=== PATIENT | female | born 1980 | race American Indian/Alaskan Native ===

== ENCOUNTER 2017-06-20 21:10 | Emergency (ER) | payer MEDICARE ==
[2017-06-20 22:04] LABS: Basophils % (Auto) 1.1 % (0.0-1.8); Eosinophils % (Auto) 2.1 % (0.0-4.3); Hematocrit 32.5 % (30.3-42.9); Hemoglobin 10.5 gm/dl (10.1-14.3); Mean Corpuscular HGB Conc 32 % (30-34); Mean Corpuscular Hemoglobin 27 pg (28-32); Mean Corpuscular Volume 85 fl (79-97); Platelet Count 237 K/mm3 (140-440); Red Blood Count 3.84 M/mm3 (3.65-5.03); Red Cell Distribution Width 19.8 % (13.2-15.2); White Blood Count 5.5 K/mm3 (4.5-11.0)
[2017-06-20 22:24] LABS: Alanine Aminotransferase 12 units/L (7-56); Albumin 3.8 g/dL (3.9-5); Albumin/Globulin Ratio 1.1 %; Alkaline Phosphatase 93 units/L (35-129); Anion Gap 17 mmol/L; BUN/Creatinine Ratio 32; Blood Urea Nitrogen 16 mg/dL (7-17); Calcium 8.9 mg/dL (8.4-10.2); Carbon Dioxide 22 mmol/L (22-30); Chloride 103.6 mmol/L (98-107); Glucose 110 mg/dL (65-100); Lipase 33 units/L (13-60); Potassium 3.3 mmol/L (3.6-5.0); Sodium 139 mmol/L (137-145); Total Protein 7.2 g/dL (6.3-8.2)
[2017-06-21 11:37] VITALS: BP 114/83
== END 2017-06-21 10:45 | disposition left against medical advice (07) ==
LOC: ED 21:10
DX: R11.0 Nausea (principal); Z53.21 Procedure and treatment not carried out due to patient leaving prior to being seen by health care provider
CPT/HCPCS: 36415; 80053; 83690; 84703; 85025

== ENCOUNTER 2021-01-29 05:20 | Emergency (ER) | payer MEDICARE ==
[2021-01-29] MEDS ORDERED: LORazepam 1 MG TAB PO ONE (06:45)
[2021-01-29] MEDS ORDERED: DIVALPROEX DR 500 MG TAB PO ONE (06:46)
--- NOTE | 2021-01-29 06:57 | Emergency Department Report ---
ED General Adult HPI - General Chief complaint: Seizure Stated complaint: SZ Time Seen by Provider: 01/29/21 06:16 Source: EMS Mode of arrival: Stretcher Limitations: No Limitations - History of Present Illness Initial comments: This is a 40-year-old female who is not providing a lot of historical information. She states that she is unclear as to why she is here. She can tell me her name and the year as well as her address. Apparently she was transp orted via EMS after a witnessed "seizure lasted for 30 seconds". The patient does have a history of seizure disorder. She can tell me that she is out of her clonazepam and Depakote. She states that she usually gets her medications through the [facility]. Review of her previous EMR indicates that in 2014 she was seen after seizure and was looking for chronic pain management: I splint the patient that we do not treat lupus flareups with IV morphine, I also presented the patient had a normal sedimentation rate, which is not typical and lupus. I recommended she follow up back at [facility] for reevaluation of her diagnosis. I also explained to her the dangers of narcotic dependence. - Differential Diagnosis Lupus, fibromyalgia, seizure Critical care attestation.: If time is entered above; I have spent that time in minutes in the direct care of this critically ill patient, excluding procedure time. Patient reports no history of trauma. She is not suggesting that she is having a lupus flare. She is not complaining of any pain at the time of my encounter. According to the record she has been previously prescribed Keppra. As above she is stating she is on clonazepam and Depakote. -: This morning Associated Symptoms: denies other symptoms - Related Data Home Medications Medication Instructions Recorded Confirmed Last Taken levETIRAcetam [Keppra] 1,000 mg PO BID 09/26/14 09/26/14 09/26/14 Previous Rx's Medication Instructions Recorded Last Taken Type Tramadol HCl [traMADol] 50 mg PO TID PRN #10 tablet 09/26/14 Unknown Rx Divalproex ER [DepaKOTE ER] 500 mg PO BID #60 tablet 01/29/21 Unknown Rx Ferrous Gluconate [Ferrous 324 mg PO TID #20 tablet 01/29/21 Unknown Rx Gluconate 324 MG] clonazePAM [Klonopin] 1 mg PO QDAY #7 tablet 01/29/21 Unknown Rx Allergies Allergy/AdvReac Type Severity Reaction Status Date / Time aspirin Allergy Swelling Verified 01/29/21 06:38 levetiracetam [From Keppra] Allergy Swelling Verified 01/29/21 06:38 ED Review of Systems ROS: Stated complaint: SZ Other details as noted in HPI Constitutional: denies: chills, fever Eyes: denies: eye pain, vision change ENT: denies: ear pain, throat pain Respiratory: denies: cough, shortness of breath Cardiovascular: denies: chest pain, palpitations Endocrine: no symptoms reported Gastrointestinal: denies: abdominal pain, nausea, diarrhea Genitourinary: denies: urgency, dysuria Musculoskeletal: denies: back pain Skin: denies: rash, lesions Neurological: other. denies: headache, weakness, paresthesias Psychiatric: denies: anxiety, depression Hematological/Lymphatic: denies: easy bleeding, easy bruising ED Past Medical Hx - Past Medical History Previous Medical History?: Yes Hx Seizures: Yes Hx Asthma: Yes Additional medical history: lupus - Surgical History Past Surgical History?: Yes Additional Surgical History: hernia repair - Social History Smoking Status: Never Smoker Substance Use Type: None - Medications Home Medications: Home Medications Medication Instructions Recorded Confirmed Last Taken Type Tramadol HCl [traMADol] 50 mg PO TID PRN #10 tablet 09/26/14 Unknown Rx levETIRAcetam [Keppra] 1,000 mg PO BID 09/26/14 09/26/14 09/26/14 History Divalproex ER [DepaKOTE ER] 500 mg PO BID #60 tablet 01/29/21 Unknown Rx Ferrous Gluconate [Ferrous 324 mg PO TID #20 tablet 01/29/21 Unknown Rx Gluconate 324 MG] clonazePAM [Klonopin] 1 mg PO QDAY #7 tablet 01/29/21 Unknown Rx ED Physical Exam - General Limitations: No Limitations General appearance: alert, in no apparent distress - Head Head exam: Present: atraumatic, normocephalic - Eye Eye exam: Present: normal appearance. Absent: scleral icterus - ENT ENT exam: Present: mucous membranes moist, other (No oral trauma but noted to have tongue fasciculations) - Neck Neck exam: Present: normal inspection - Respiratory Respiratory exam: Present: normal lung sounds bilaterally. Absent: respiratory distress - Cardiovascular Cardiovascular Exam: Present: regular rate, normal rhythm. Absent: systolic murmur, diastolic murmur, rubs, gallop - GI/Abdominal GI/Abdominal exam: Present: soft, normal bowel sounds. Absent: distended, tenderness, guarding, rebound - Extremities Exam Extremities exam: Present: normal inspection. Absent: pedal edema, joint swelling, calf tenderness - Back Exam Back exam: Present: normal inspection. Absent: CVA tenderness (R), CVA tenderness (L), muscle spasm, paraspinal tenderness, vertebral tenderness - Neurological Exam Neurological exam: Present: alert, oriented X3, CN II-XII intact. Absent: motor sensory deficit - Psychiatric Psychiatric exam: Present: normal affect, normal mood - Skin Skin exam: Present: warm, dry, intact, normal color. Absent: rash ED Course Vital Signs 01/29/21 01/29/21 01/29/21 05:31 05:45 06:15 Temperature 98.5 F Pulse Rate 84 94 H 100 H Respiratory 15 24 Rate Blood Pressure 111/54 105/48 Blood Pressure 108/58 [Left] O2 Sat by Pulse 100 99 100 Oximetry 01/29/21 01/29/21 01/29/21 06:31 06:45 07:01 Temperature Pulse Rate 105 H Respiratory 28 H Rate Blood Pressure 105/48 117/75 105/48 Blood Pressure [Left] O2 Sat by Pulse 100 100 100 Oximetry 01/29/21 01/29/21 07:15 07:30 Temperature Pulse Rate Respiratory Rate Blood Pressure 105/48 115/66 Blood Pressure [Left] O2 Sat by Pulse 99 100 Oximetry - Reevaluation(s) Reevaluation #1: Patient is suspected of having clonazepam withdrawal considering her tongue fasciculations. However, she has a pre-existing seizure disorder and noncomplia nce. To be screened for any concommitment metabolic issue. This appears to be clinically unlikely and probably she will be appropriate for discharge. 01/29/21 06:58 ED Medical Decision Making - Lab Data Result diagrams: 01/29/21 06:55 01/29/21 06:55 Laboratory Results - last 24 hr 01/29/21 01/29/21 01/29/21 06:55 06:55 06:59 WBC 5.9 RBC 3.55 L Hgb 8.9 L Hct 28.5 L MCV 80 MCH 25 L MCHC 31 RDW 19.2 H Plt Count 242 Lymph % (Auto) 23.3 [place] % (Auto) 7.7 H Eos % (Auto) 0.4 Baso % (Auto) 0.7 Lymph # (Auto) 1.4 [place] # (Auto) 0.5 Eos # (Auto) 0.0 Baso # (Auto) 0.0 Seg Neutrophils % 67.9 Seg Neutrophils # 4.0 Sodium 138 Potassium 3.9 Chloride 106.0 Carbon Dioxide 22 Anion Gap 14 BUN 13 Creatinine 0.4 L Estimated GFR > 60 BUN/Creatinine Ratio 33 Glucose 138 H Calcium 8.6 Urine Color Yellow Urine Turbidity Clear Urine pH 7.0 Ur Specific [place] 1.011 Urine Protein <15 mg/dl Urine Glucose (UA) Neg Urine Ketones Neg Urine Blood Lg Urine Nitrite Neg Urine Bilirubin Neg Urine Urobilinogen 2.0 Ur Leukocyte Esterase Neg Urine WBC (Auto) 5.0 Urine RBC (Auto) 80.0 U Epithel Cells (Auto) < 1.0 Urine HCG, Qual Negative Urine Opiates Screen Urine Methadone Screen Ur Barbiturates Screen Ur Phencyclidine Scrn Ur Amphetamines Screen U Benzodiazepines Scrn Urine Cocaine Screen U Marijuana (THC) Screen Drugs of Abuse Note 01/29/21 06:59 WBC RBC Hgb Hct MCV MCH MCHC RDW Plt Count Lymph % (Auto) [place] % (Auto) Eos % (Auto) Baso % (Auto) Lymph # (Auto) [place] # (Auto) Eos # (Auto) Baso # (Auto) Seg Neutrophils % Seg Neutrophils # Sodium Potassium Chloride Carbon Dioxide Anion Gap BUN Creatinine Estimated GFR BUN/Creatinine Ratio Glucose Calcium Urine Color Urine Turbidity Urine pH Ur Specific [place] Urine Protein Urine Glucose (UA) Urine Ketones Urine Blood Urine Nitrite Urine Bilirubin Urine Urobilinogen Ur Leukocyte Esterase Urine WBC (Auto) Urine RBC (Auto) U Epithel Cells (Auto) Urine HCG, Qual Urine Opiates Screen Negative Urine Methadone Screen Negative Ur Barbiturates Screen Negative Ur Phencyclidine Scrn Negative Ur Amphetamines Screen Negative U Benzodiazepines Scrn Negative Urine Cocaine Screen Negative U Marijuana (THC) Screen Negative Drugs of Abuse Note Disclamer Critical care attestation.: If time is entered above; I have spent that time in minutes in the direct care of this critically ill patient, excluding procedure time. ED Disposition Clinical Impression: Seizure, Seizure disorder, Hypochromic anemia Disposition: DC-01 TO HOME OR SELFCARE Is pt being admited?: No Does the pt Need Aspirin: No Condition: Stable Instructions: Seizure, Adult, [id number], Seizure, Adult, Preventing Iron Deficiency Anemia, Adult Additional Instructions: It is essential that you get follow-up care for your seizures. I can give you a short course of clonazepam but that must be prescribed by a primary care physician. I can also continue your Depakote. I do recommend iron replacement and follow-up on your anemia. Return to the emergency department any acute change or problem. Prescriptions: Divalproex ER [DepaKOTE ER] 500 mg PO BID #60 tablet Ferrous Gluconate [Ferrous Gluconate 324 MG] 324 mg PO TID #20 tablet clonazePAM [Klonopin] 1 mg PO QDAY #7 tablet Referrals: PRIMARY CARE, [Primary Care Provider] - 3-5 Days [facility] [Provider Group] - 3-5 Days Time of Disposition: 11:44
[2021-01-29 07:16] LABS: Basophils % (Auto) 0.7 % (0.0-1.8); Eosinophils % (Auto) 0.4 % (0.0-4.3); Hematocrit 28.5 % (30.3-42.9); Hemoglobin 8.9 gm/dl (10.1-14.3); Lymphocytes # (Auto) 1.4 K/mm3 (1.2-5.4); Lymphocytes % (Auto) 23.3 % (13.4-35.0); Mean Corpuscular HGB Conc 31 % (30-34); Mean Corpuscular Volume 80 fl (79-97); Monocytes # (Auto) 0.5 K/mm3 (0.0-0.8); Monocytes % (Auto) 7.7 % (0.0-7.3); Platelet Count 242 K/mm3 (140-440); Red Blood Count 3.55 M/mm3 (3.65-5.03); Red Cell Distribution Width 19.2 % (13.2-15.2)
[2021-01-29 07:20] LABS: Amphetamine Screen,Urine Negative; Benzodiazepines Screen,Urine Negative; Cannabinoid Screen,Urine Negative; Cocaine Screen,Urine Negative; Methadone Screen,Urine Negative; Opiate Screen,Urine Negative
[2021-01-29 07:25] LABS: Bilirubin,Urine NEG (Negative); Blood,Urine LG (Negative); Color,Urine Yellow (Yellow); Protein,Urine <15 mg/dL mg/dL (Negative)
[2021-01-29 07:30] LABS: Blood Urea Nitrogen 13 mg/dL (7-17); Calcium 8.6 mg/dL (8.4-10.2); Hemolysis Index 37
[2021-01-29 07:31] LABS: BUN/Creatinine Ratio 33
[2021-01-29 07:41] LABS: HCG Qualitative,Urine Negative (Negative)
[2021-01-29 13:10] VITALS: BP 99/54
== END 2021-01-29 13:10 | disposition home or self-care (01) ==
LOC: ED 05:20
DX: R56.9 Unspecified convulsions (principal); D50.9 Iron deficiency anemia, unspecified; Z98.890 Other specified postprocedural states; Z79.899 Other long term (current) drug therapy; Z88.8 Allergy status to other drugs, medicaments and biological substances
CPT/HCPCS: 36415; 80048; 80307; 81001; 81025; 85025

== ENCOUNTER 2022-05-30 01:52 | Emergency (ER) | payer MEDICARE ==
[2022-05-30] MEDS ORDERED: SODIUM CHLORIDE 0.9% 1000 ML 1,000 ML IV ONE ×2 (03:33→03:56)
[2022-05-30 03:57] LABS: Hematocrit 32.4 % (30.3-42.9); Hemoglobin 10.1 gm/dl (10.1-14.3); Mean Corpuscular HGB Conc 31 % (30-34); Mean Corpuscular Volume 83 fl (79-97); Platelet Count 252 K/mm3 (140-440); Red Blood Count 3.92 M/mm3 (3.65-5.03); Red Cell Distribution Width 19.9 % (13.2-15.2)
--- NOTE | 2022-05-30 04:14 | XRay Report ---
CHEST 1 VIEW INDICATION / CLINICAL INFORMATION: Seizure. COMPARISON: None available. FINDINGS: SUPPORT DEVICES: None. HEART / MEDIASTINUM: No significant abnormality. LUNGS / PLEURA: Pulmonary vascular congestion. No focal area of consolidation. No pleural effusion. N o pneumothorax. ADDITIONAL FINDINGS: No significant additional findings. IMPRESSION: 1. Pulmonary vascular congestion. Signer Name: Kym Bhakta MD Signed: 05/30/2022 4:10 AM Workstation Name: [id number]
[2022-05-30 04:20] LABS: Alanine Aminotransferase 15 units/L (7-56); Albumin 4.3 g/dL (3.9-5); Blood Urea Nitrogen 11 mg/dL (7-17); Calcium 9.4 mg/dL (8.4-10.2); Hemolysis Index 12
[2022-05-30 04:23] LABS: BUN/Creatinine Ratio 22
[2022-05-30 04:53] VITALS: BP 118/69
--- NOTE | 2022-05-30 05:01 | Cat Scan Report ---
CT head/brain wo con INDICATION / CLINICAL INFORMATION: Seizure. TECHNIQUE: Axial CT imaging of the brain was obtained without contrast. Coronal and sagittal reformatted imaging obtained and reviewed. All CT scans at this location are performed using CT dose reduction for ALAR A by means of automated exposure control. COMPARISON: None available. FINDINGS: No intracranial hemorrhage, mass, or midline shift is noted. No extra-axial fluid collection or sugge stion of acute territorial infarction. Ventricular system and basilar cisterns are unremarkable. Visualized paranasal sinuses are well aerated and clear. No calvarial fracture noted. IMPRESSION: 1. No acute intracranial abnormality. Signer Name: Kym Bhakta MD Signed: 05/30/2022 4:57 AM Workstation Name: [id number]
--- NOTE | 2022-05-30 05:13 | Emergency Department Report ---
ED General Adult HPI - General Chief complaint: Seizure Stated complaint: SEIZURE PUI?: No Time Seen by Provider: 05/30/22 03:27 Source: family, EMS Mode of arrival: Stretcher Limitations: No Limitations - History of Present Illness Initial comments: THIS IS A 42 YEAR OLD FEMALE BROUGHT IN BY EMS WITH CONCERN OF SEIZURE. PER SI GNIFICANT OTHER WHO DOESN'T KNOW WHAT MEDICATION SHE IS TAKING FOR HER SEIZURE; PATIENT WAS AT BAR AND HAD ALCOHOL INTAKE AND HAD SEIZURE AROUND MIDNIGHT. - Related Data Home Medications Medication Instructions Recorded Confirmed Last Taken levETIRAcetam [Keppra] 1,000 mg PO BID 09/26/14 09/26/14 09/26/14 Previous Rx's Medication Instructions Recorded Last Taken Type Tramadol HCl [traMADol] 50 mg PO TID PRN #10 tablet 09/26/14 Unknown Rx Divalproex ER [DepaKOTE ER] 500 mg PO BID #60 tablet 01/29/21 Unknown Rx Ferrous Gluconate [Ferrous 324 mg PO TID #20 tablet 01/29/21 Unknown Rx Gluconate 324 MG] clonazePAM [Klonopin] 1 mg PO QDAY #7 tablet 01/29/21 Unknown Rx Allergies Allergy/AdvReac Type Severity Reaction Status Date / Time aspirin Allergy Swelling Verified 01/29/21 06:38 levetiracetam [From Keppra] Allergy Swelling Verified 01/29/21 06:38 ED Review of Systems ROS: Stated complaint: SEIZURE Other details as noted in HPI ED Past Medical Hx - Past Medical History Previous Medical History?: Yes Hx Seizures: Yes Hx Asthma: Yes Additional medical history: lupus - Surgical History Past Surgical History?: Yes Additional Surgical History: hernia repair - Social History Smoking Status: Never Smoker Substance Use Type: Alcohol - Medications Home Medications: Home Medications Medication Instructions Recorded Confirmed Last Taken Type Tramadol HCl [traMADol] 50 mg PO TID PRN #10 tablet 09/26/14 Unknown Rx levETIRAcetam [Keppra] 1,000 mg PO BID 09/26/14 09/26/14 09/26/14 History Divalproex ER [DepaKOTE ER] 500 mg PO BID #60 tablet 01/29/21 Unknown Rx Ferrous Gluconate [Ferrous 324 mg PO TID #20 tablet 01/29/21 Unknown Rx Gluconate 324 MG] clonazePAM [Klonopin] 1 mg PO QDAY #7 tablet 01/29/21 Unknown Rx ED Physical Exam - General Limitations: Altered Mental Status General appearance: alert, in no apparent distress - Head Head exam: Present: atraumatic, normocephalic, normal inspection - Eye Eye exam: Present: normal appearance, PERRL, EOMI Pupils: Present: normal accommodation - ENT ENT exam: Present: normal exam, mucous membranes moist - Neck Neck exam: Present: normal inspection, full ROM - Respiratory Respiratory exam: Present: normal lung sounds bilaterally - Cardiovascular Cardiovascular Exam: Present: regular rate, normal rhythm, normal heart sounds - GI/Abdominal GI/Abdominal exam: Present: soft - Extremities Exam Extremities exam: Present: normal inspection, full ROM, normal capillary refill - Back Exam Back exam: Present: normal inspection, full ROM - Neurological Exam Neurological exam: Present: alert, altered (AOX0), CN II-XII intact - Skin Skin exam: Present: normal color ED Course Vital Signs 05/30/22 05/30/22 05/30/22 01:53 02:53 03:00 Temperature 98.7 F Pulse Rate 110 H 99 H 112 H Respiratory 18 15 16 Rate Blood Pressure 132/84 109/68 O2 Sat by Pulse 100 84 Oximetry 05/30/22 05/30/22 05/30/22 03:16 03:30 03:46 Temperature Pulse Rate 96 H 91 H 95 H Respiratory 16 16 14 Rate Blood Pressure 113/63 113/64 125/61 O2 Sat by Pulse 99 100 100 Oximetry 05/30/22 05/30/22 05/30/22 04:00 04:24 04:30 Temperature Pulse Rate 105 H Respiratory 19 13 13 Rate Blood Pressure 118/69 118/69 118/69 O2 Sat by Pulse 86 100 Oximetry 05/30/22 05/30/22 05/30/22 04:38 04:46 04:53 Temperature 98.7 F Pulse Rate Respiratory 15 14 Rate Blood Pressure 118/69 O2 Sat by Pulse 99 98 Oximetry - Reevaluation(s) Reevaluation #1: 05/30/22 05:50 MENTATION SIGNIFICANTLY IMPROVED; KNOWS 2021. SIGNIFICANT OTHER AND PATIENT INFORMED SHE MUST FOLLOW UP WITH NEUROLOGIST TO BE SEEN WITHIN 3 DAYS FOR FURTHER MANAGEMENT OF HER SEIZURE. ED Medical Decision Making - Lab Data Result diagrams: 05/30/22 03:46 05/30/22 03:46 Critical care attestation.: If time is entered above; I have spent that time in minutes in the direct care of this critically ill patient, excluding procedure time. ED Disposition Clinical Impression: Seizure Disposition: 01 HOME / SELF CARE / HOMELESS Is pt being admited?: No Does the pt Need Aspirin: No Condition: Stable Instructions: Epilepsy, [id number] Additional Instructions: MAKE A FOLLOW UP APPOINTMENT WITH YOUR NEUROLOGIST TO BE SEEN WITHIN 3 DAYS FOR FURTHER OUTPATIENT EVALUATION OF YOUR SEIZURE. Forms: Work/School Release Form(ED) Time of Disposition: 05:49
[2022-05-30 05:18] LABS: Color,Urine Colorless (Yellow)
[2022-05-30 05:26] LABS: Amphetamine Screen,Urine Negative; Cannabinoid Screen,Urine Negative; Cocaine Screen,Urine Negative; Methadone Screen,Urine Negative; Opiate Screen,Urine Negative
[2022-05-30] MEDS ORDERED: VALPROATE SODIUM 500 MG in SODIUM CHLORIDE 0.9% 100 ML IV ONE (05:45)
[2022-05-30 05:49] LABS: Benzodiazepines Screen,Urine Positive
[2022-05-30] MEDS ORDERED: levETIRAcetam 1,500 MG in DEXTROSE 5% IN WATER 100 ML IV ONE (05:52)
== END 2022-05-30 07:04 | disposition home or self-care (01) ==
LOC: ED 01:52
DX: R56.9 Unspecified convulsions (principal); J45.909 Unspecified asthma, uncomplicated; Z91.09 Other allergy status, other than to drugs and biological substances
CPT/HCPCS: 36415; 70450; 71045; 80053; 80164; 80177; 80307; 81001; 82140; 82550; 83735; 85027; 96361; 96365; 99285; J1953; J7030; J7060; 80320; G0480